=== PATIENT | female | born 1955 | race Caucasian/White ===

== ENCOUNTER 2024-09-19 07:51 | Emergency (ER) | payer BC, SELFPAY ==
[2024-09-19 08:05] VITALS: BP 137/86; PULSE 89; RESP 18; TEMP 36.4; O2SAT 97; BMI 22.6
--- NOTE | 2024-09-19 08:23 | ED_ITS ---
HPI - Extremity Injury (Lower) General Time Seen by Provider: 08:23 Date Seen: 09/19/24 Chief Complaint: Extremity Pain/Injury, Lower Stated Complaint: R foot hurts to walk Time Seen by Provider: 09/19/24 08:22 Source: patient and RN notes reviewed Mode of arrival: ambulatory (With crutches) Limitations: no limitations History of Present Illness HPI Narrative: This 69-year-old female is coming in with concern of possible fracture in her right foot. She was wearing tennis shoes walking in a park yesterday. She just stepped wrong and felt a snap in her foot and had excruciating pain. She can palpate around her ankle, around her heel and there is no palpable pain. She can not pinpoint it with palpating but if she steps on the foot she gets excruciating sharp pain in the metatarsal area per her report. She had crutches at home, she states she does have a boot at home. She does wonder if some part of her foot is broken. Related Data Home Medications ?Medication ?Instructions ?Recorded ?Confirmed No Known Home Medications 09/19/24 09/19/24 Allergies Allergy/AdvReac Type Severity Reaction Status Date / Time No Known Drug Allergies Allergy Verified 09/19/24 08:04 Review of Systems Narrative: As per HPI. PFSH PFSH Social History Smoking Status: Unknown if ever smoked How often do you have a drink containing alcohol: never AUDIT-C Alcohol total score: 0 Non-prescribed substance use: denies use Exam Const: Vital Signs, click to edit/add: Vital Signs - 24 hr 09/19/24 08:05 Temperature 97.5 F L Pulse Rate [Pulse Oximeter] 89 Respiratory Rate 18 Blood Pressure [Ri ght Upper Arm] 137/86 Pulse Oximetry 97 Oxygen Delivery Me thod Room Air This 69-year-old female is alert, interactive, no apparent distress. She is sitting on the bed in exam room 1, crutches next to her. On inspection of her right distal lower extremity, there is no erythema, no ecchymosis or swelling noted. She is nontender about the ankle, no swelling about the ankle. I feel no tenderness over the Achilles or over her calcaneus. Palpation of the midfoot and the metatarsals dorsally down the foot do not reveal any point tenderness. Neurovascular is intact, normal sensation and normal vascularity. She can wiggle her toes, attempting to palpate on the plantar surface does give some non reproducible sharp type pain. It is difficult to say where this is but it seems to be most identifiable from the plantar surface and maybe more in the mid foot to proximal metatarsals that I cannot reproduce from the plantar surface. She certainly does not seem to palpate tender over the 5th metatarsal throughout its course. Documenting provider has reviewed patient's vital signs: yes Course Course ED Course: We will obtain x-ray imaging to rule out underlying fracture. If there is no fracture, will have her follow up with Orthopedics to consider ligamentous and other possible non bony musculoskeletal injuries. Reevaluation(s) Time of Reevaluation #1: 09:11 Reevaluation #1: Have reviewed with patient that there is no x-ray findings of fracture. We did talk about the arthritis seen, this does not correspond with her pain. Did review with her that stress fractures may not show up on x-rays initially, sometimes they will later on x-rays or sometimes need advanced imaging. Recommend that she continue with crutches, she does have a boot at home and if she can walk in the boot without pain, should be able to do this. Otherwise, crutches for nonweightbearing and orthopedic follow-up. Vital Signs Vital signs: Initial Vital Signs Temperature 97.5 F L 09/19/24 08:05 Temperature Source Temporal Artery Scan 09/19/24 08:05 Pulse Rate 89 09/19/24 08:05 Respiratory Rate 18 09/19/24 08:05 Blood Pressure 137/86 09/19/24 08:05 Blood Pressure Mean 103 09/19/24 08:05 Pulse Oximetry 97 09/19/24 08:05 Oxygen Delivery Method Room Air 09/19/24 08:05 Vital Signs Temperature 97.5 F L 09/19/24 08:05 Pulse Rate 89 09/19/24 08:05 Respiratory Rate 18 09/19/24 08:05 Blood Pressure 137/86 09/19/24 08:05 Pulse Oximetry 97 09/19/24 08:05 Oxygen Delivery Method Room Air 09/19/24 08:05 Temperature 97.5 F L 09/19/24 08:05 Pulse Rate 89 09/19/24 08:05 Respiratory Rate 18 09/19/24 08:05 Blood Pressure 137/86 09/19/24 08:05 Pulse Oximetry 97 09/19/24 08:05 Oxygen Delivery Method Room Air 09/19/24 08:05 MDM - Extremity Injury (Lower) Imaging Data XR right foot: Attestation: I have reviewed the pertinent imaging results. Radiologist's impression: Patient: MARIA TERESA OLIVA Facility:?[facility] Patient ID:?[id number] Site Patient ID:?[id number]. Site :?[id number] Study:?XRay-Extremity Right FOOT 3 VIEWS-09/19/2024 8:58:40 AM Ordering Physician:?Meagan Duong Final Report: INDICATION: Pain in foot. Started yesterday walking. TECHNIQUE: Right foot three views. COMPARISON: None. FINDINGS: No acute fracture or dislocation. Degenerative changes greatest at the 1st metatarsophalangeal joint. Calcaneal enthesophyte. No additional osseous abnormality. Soft tissues as imaged are unremarkable. IMPRESSION: No acute osseous abnormality. Dictated by Rai Del Valle MD @ 09/19/2024 9:05:52 AM (Electronic Signature) Discharge Plan Discharge Clinical Impression: Acute pain of right foot Patient Disposition: Home, Self-Care Condition: Stable Additional Instructions: Use crutches and or boot you have at home for pain-free weight-bearing. Can use Tylenol and ibuprofen for discomfort, follow bottle directions for dosing. Please call the orthopedic office to get scheduled for a follow-up. If you have ongoing symptoms, could possibly be a stress fracture and you will need further evaluation and management. It is possible that this could be soft tissue or ligamentous injury as well. Ultimately, if ongoing symptoms, need orthopedic evaluation. Please call [phone] to get scheduled. Prescriptions: No Action No Known Home Medications Follow Up/Referrals: Shira Pham MD [Primary Care Provider] - Stand Alone Forms: Dr. Z Info Instructions
--- NOTE | 2024-09-19 08:26 | CRLHL7_ITS ---
For Patients: As a result of the Cures Act, medical imaging exams and procedure reports are released immediately into your electronic medical record. You may view this report before your referring provider. If you have questions, please contact your health care provider. INDICATION: Pain in foot. Started yesterday walking. TECHNIQUE: Right foot three views. COMPARISON: None. FINDINGS: No acute fracture or dislocation. Degenerative changes greatest at the 1st metatarsophalangeal joint. Calcaneal enthesophyte. No additional osseous abnormality. Soft tissues as imaged are unremarkable. IMPRESSION: No acute osseous abnormality. Dictated by Rai Del Valle MD @ 09/19/2024 9:05:52 AM (Electronically Signed)
== END 2024-09-19 09:19 | disposition home or self-care (01) ==
PROVIDERS: Emergency Provider Family Medicine; PCP Family Medicine
DX: M79.671 Pain in right foot (principal); X50.1XXA Overexertion from prolonged static or awkward postures, initial encounter
CPT/HCPCS: 73630; 99283